=== PATIENT | female | born 1985 | race Caucasian/White ===

== ENCOUNTER 2018-11-08 02:46 | Emergency (ER) | payer BC ==
[~2018-11-08] VITALS: Ht 157.5 cm; Wt 99.3 kg
[2018-11-08 02:53] VITALS: Ht 157.5 cm; Wt 99.3 kg
[2018-11-08 04:41] VITALS: BP 112/73
== END 2018-11-08 02:53 | disposition home or self-care (01) ==
LOC: ED 02:46
DX: J18.9 Pneumonia, unspecified organism (principal); J45.909 Unspecified asthma, uncomplicated; M79.7 Fibromyalgia; E03.9 Hypothyroidism, unspecified; Z88.1 Allergy status to other antibiotic agents
CPT/HCPCS: J7620